=== PATIENT | female | born 1970 | race Caucasian/White ===

== ENCOUNTER 2017-03-22 14:49 | Emergency (ER) | payer MEDICAID ==
[~2017-03-22] VITALS: Ht 160 cm; Wt 68.0 kg
[~2017-03-22 14:49] MED LIST: LEVA750T PO; METR-1 PO
[2017-03-22 15:03] VITALS: BP 121/77; PULSE 75; RESP 16; TEMP 98.1; O2SAT 97; O2SAT 98
[2017-03-22] MEDS ORDERED: CLINDAMYCIN 150 MG CAP PO ONE (15:15)
[2017-03-22] MEDS ORDERED: SODIUM CHLORIDE 0.9% FLUSH 10 ML FLUSH IVF PRN ×2 (15:15)
[2017-03-22] MEDS ORDERED: ASPI81TA81 PO (15:20)
--- NOTE | 2017-03-22 15:21 | PD ---
HPI Chief Complaint: Chest Pain Time Seen by Provider: 15:06 Travel History International Travel<30 days: No Contact w/Intl Traveler<30days: No Traveled to known affect area: No History of Present Illness HPI 46-year-old female with history of breast cancer in remission, CAD with previous CABG who presents the emergency department with complaint of dental pain, facial swelling and chest pain. Patient has dental caries along the left mandibular teeth. This morning she woke up with facial swelling and significant pain in the left side of the face/jaw. She has not had any difficulty swelling, no fevers or chills. Patient states that she got quite anxious due to the pain and then began to have occasional sharp twinges of pain in the chest. This is substernal and felt like "electric zingers" lasting 1-2 seconds each. No associated shortness of breath. Not made worse with inspiration, movement. Patient is chest pain-free at this moment and is complaining only of left-sided dental pain. PFSH Past Medical History Hx Anticoagulant Therapy: Yes (81MG ASA) Anxiety: Yes Depression: Yes Heart Rhythm Problems: No Cancer: Yes (BREAST) Cardiac Catheterization: Yes Cardiovascular Problems: Yes (triple bypass) High Cholesterol: Yes Chemotherapy: Yes (BREAST CA ) Chest Pain: Yes Congestive Heart Failure: Yes Cerebrovascular Accident: No Coronary Artery Disease: Yes Diabetes: Yes (TYPE 1 ) Diminished Hearing: No Endocrine: No Gastrointestinal Disorders: No Genitourinary: No Hypertension: No Immune Disorder: No Implanted Vascular Access Dvce: Yes (PORT) Musculoskeletal: No Neurologic: No Psychiatric: Yes Reproductive: No Respiratory: No Immunizations Current: Yes Myocardial Infarction: Yes (-2012) Thyroid Disease: No ?: Not : 3 Para: 3 Tubal Ligation: Yes Past Surgical History Abdominal Surgery: Yes (HYSTERECTOMY, APPY, C-SEC X2) Appendectomy: Yes Cardiac Surgery: Yes (CABG -2012) Section: Yes Coronary Artery Bypass Graft: Yes (X3) Ear Surgery: No Endocrine Surgery: No Eye Surgery: No Genitourinary Surgery: Yes (HYSTERECTOMY) Gynecologic Surgery: Yes (2 c sections) Hysterectomy: Yes (2009) Neurologic Surgery: No Oral Surgery: No Thoracic Surgery: No Other Surgery: Yes (BILAT MASTECTOMY) Social History Alcohol Use: No Tobacco Use: Yes (OCCASIONAL) Substance Use: No Allergies-Medications (Allergen,Severity, Reaction): Coded Allergies: Penicillin (Verified Allergy, Severe, Hives, 09/15/16) Morphine (Verified Allergy, Intermediate, HIVES AND NAUSEA, 09/15/16) Toradol (Verified Allergy, Intermediate, itch and nausea, 09/15/16) Reported Meds & Prescriptions Reported Meds & Active Scripts Active Reported Aspir-81 (Aspirin) 81 Mg Tabdr 1 Tab PO DAILY Review of Systems Except as stated in HPI: all other systems reviewed are Neg Physical Exam Narrative GENERAL: Anxious tearful female holding left side of the jaw SKIN: Focused skin assessment warm/dry. Bilateral mastectomy scars HEAD: Normocephalic. EYES: No scleral icterus. No injection or drainage. ENT: Left mandibular dental caries with associated tenderness to palpation along the gingival mucosa. No palpable abscess. There is associated swelling of the left side of the face. The floor the mouth itself is soft. NECK: Supple CARDIOVASCULAR: Regular rate and rhythm. No murmur appreciated. No tenderness to palpation of the chest wall. RESPIRATORY: Hyperventilating on exam. Clear to auscultation. Breath sounds equal bilaterally. GASTROINTESTINAL: Abdomen soft, non-tender, nondistended. MUSCULOSKELETAL: No obvious deformities. No edema. NEUROLOGICAL: Awake and alert. Normal speech. PSYCHIATRIC: Anxious tearful and hyperventilating Data Data Last Documented VS Vital Signs Date Time Temp Pulse Resp B/P Pulse Ox O2 Delivery O2 Flow Rate FiO2 03/22/17 15:35 65 16 122/70 97 Room Air 03/22/17 15:03 98.1 Orders Electrocardiogram (03/22/17 15:12) Basic Metabolic Panel (Bmp) (03/22/17 15:12) Complete Blood Count With Diff (03/22/17 15:12) Troponin I (03/22/17 15:12) Ecg Monitoring (03/22/17 15:12) Iv Access Insert/Monitor (03/22/17 15:12) Oximetry (03/22/17 15:12) Sodium Chloride 0.9% Flush (Ns Flush) (03/22/17 15:15) Heparin Central Flush (Heparin Central F (03/22/17 15:15) Sodium Chloride 0.9% Flush (Ns Flush) (03/22/17 15:15) Heparin Central Flush (Heparin Central F (03/22/17 15:15) Clindamycin (Cleocin) (03/22/17 15:15) Oxycodone-Acetamin 5-325 Mg (Percocet (03/22/17 15:30) Labs Laboratory Tests Test 03/22/17 15:18 White Blood Count 6.6 TH/MM3 Red Blood Count 4.38 MIL/MM3 Hemoglobin 11.2 GM/DL Hematocrit 34.3 % Mean Corpuscular Volume 78.4 FL Mean Corpuscular Hemoglobin 25.6 PG Mean Corpuscular Hemoglobin 32.7 % Concent Red Cell Distribution Width 15.3 % Platelet Count 231 TH/MM3 Mean Platelet Volume 7.9 FL Neutrophils (%) (Auto) 61.3 % Lymphocytes (%) (Auto) 26.3 % Monocytes (%) (Auto) 6.2 % Eosinophils (%) (Auto) 2.5 % Basophils (%) (Auto) 3.7 % Neutrophils # (Auto) 4.1 TH/MM3 Lymphocytes # (Auto) 1.7 TH/MM3 Monocytes # (Auto) 0.4 TH/MM3 Eosinophils # (Auto) 0.2 TH/MM3 Basophils # (Auto) 0.2 TH/MM3 CBC Comment DIFF FINAL Differential Comment Sodium Level 143 MEQ/L Potassium Level 3.4 MEQ/L Chloride Level 107 MEQ/L Carbon Dioxide Level 27.5 MEQ/L Anion Gap 9 MEQ/L Blood Urea Nitrogen 11 MG/DL Creatinine 1.00 MG/DL Estimat Glomerular Filtration 60 ML/MIN Rate Random Glucose 131 MG/DL Calcium Level 8.5 MG/DL Troponin I LESS THAN 0.02 NG/ML MDM Medical Decision Making Medical Screen Exam Complete: Yes Emergency Medical Condition: Yes Medical Record Reviewed: Yes Differential Diagnosis 46-year-old female with history of breast cancer in remission, CAD with previous CABG here with left-sided dental pain, facial swelling and occasional "electric zingers"of chest pain. Financial includes dental caries, dental abscess, facial cellulitis. No evidence of Hima angina on exam. My suspicion is that her chest pain is related to anxiety, hyperventilating on exam and very anxious. Less likely ACS, PE or dissection. Narrative Course Patient placed on monitor, port accessed and blood obtained. A twelve-lead EKG shows sinus rhythm without notable ST abnormalities, normal intervals. Patient was given oral clindamycin. CBC, BMP, troponin and unremarkable. Patient will be discharged home with antibiotics for dental caries and concurrent abscess Diagnosis Primary Impression: Dental caries Additional Impressions: Dental abscess Atypical chest pain Referrals: Dentist call for appointment Additional Instructions: Call dentist for follow-up appointment. Antibiotics as prescribed. Med/Other Pt SpecificInfo: Prescription(s) given Scripts Clindamycin 300 Mg [id number] Mg PO TID 7 Days Ref 0 Prov:Sapna Lowe MD 03/22/17 Disposition: 01 DISCHARGE HOME Condition: Stable Sapna Lowe MD Mar 22, 2017 15:21
[2017-03-22] MEDS ORDERED: oxyCODONE/ACETAMINOPHEN 5 MG/325 MG TAB PO ONE (15:30)
[2017-03-22 15:31] LABS: AUTOMATED NEUTROPHIL # 4.1 TH/MM3 (1.8-7.7); BASOPHIL # 0.2 TH/MM3 (0-0.2); BASOPHIL % 3.7 % (0.0-2.0); EOSINOPHIL # 0.2 TH/MM3 (0-0.4); EOSINOPHIL % 2.5 % (0.0-4.0); HEMATOCRIT 34.3 % (35.0-46.0); HEMO FLAGS DIFF FINAL; LYMPH % 26.3 % (9.0-44.0); LYMPHOCYTE # 1.7 TH/MM3 (1.0-4.8); MEAN CELL VOLUME 78.4 FL (80.0-100.0); MEAN CORPUSCULAR HEMOGLOBIN 25.6 PG (27.0-34.0); MEAN CORPUSCULAR HGB CONC 32.7 % (32.0-36.0); MONO % 6.2 % (0.0-8.0); NEUT % 61.3 % (16.0-70.0); PLATELET COUNT 231 TH/MM3 (150-450); RED BLOOD COUNT 4.38 MIL/MM3 (4.00-5.30); RED CELL DISTRIBUTION WIDTH 15.3 % (11.6-17.2); WHITE BLOOD COUNT 6.6 TH/MM3 (4.0-11.0)
[2017-03-22 15:35] VITALS: BP 122/70; PULSE 65; RESP 16; O2SAT 97
[2017-03-22 15:43] LABS: CHLORIDE 107 MEQ/L (98-107); POTASSIUM 3.4 MEQ/L (3.5-5.1); SODIUM (NA) 143 MEQ/L (136-145)
[2017-03-22 15:46] LABS: BICARBONATE 27.5 MEQ/L (21.0-32.0)
[2017-03-22 15:47] LABS: ANION GAP 9 MEQ/L (5-15); BLOOD UREA NITROGEN 11 MG/DL (7-18)
[2017-03-22 15:50] LABS: GLOMERULAR FILTRATION RATE 60 ML/MIN (>89)
[2017-03-22 15:55] VITALS: BP 141/86
[2017-03-22] MEDS ORDERED: CLIN1CAP6 PO (16:02)
[2017-03-22 16:11] VITALS: RESP 16
--- NOTE | 2017-03-23 12:02 | EKG ---
Date Performed: 03/22/2017 Time Performed: 14:57:59 PTAGE: 46 years EKG: Sinus rhythm POSSIBLE RIGHT VENTRICULAR CONDUCTION DELAY Since previous tracing, no significant change noted [facility]3] ECG PREVIOUS TRACING : 09/16/2016 10.56.59 DOCTOR: Win Malik Interpretating Date/Time 03/23/2017 12:00:41
== END 2017-03-22 16:06 | disposition home or self-care (01) ==
LOC: PHED 14:49
DX: Z95.1 Presence of aortocoronary bypass graft (principal); I25.10 Atherosclerotic heart disease of native coronary artery without angina pectoris; Z85.3 Personal history of malignant neoplasm of breast; K02.9 Dental caries, unspecified; K04.7 Periapical abscess without sinus; R07.89 Other chest pain
CPT/HCPCS: 80048; 84484; 85025; 93005; 99284; J1642

== ENCOUNTER 2017-05-07 07:26 | Emergency (ER) | payer MEDICAID ==
[~2017-05-07] VITALS: Ht 160 cm; Wt 70.0 kg
[~2017-05-07 07:26] MED LIST changes: +ASPI81TA81 PO; +CLIN1CAP6 PO; -LEVA750T PO; -METR-1 PO
[2017-05-07 07:33] VITALS: BP 170/82; PULSE 78; RESP 18; TEMP 98.4; O2SAT 100
[2017-05-07 07:57] VITALS: BP 170/82; PULSE 78; RESP 18; TEMP 98.4; O2SAT 100
[2017-05-07] MEDS ORDERED: IBUPROFEN 400 MG TAB PO ONE (08:00)
[2017-05-07] MEDS ORDERED: ACETAMINOPHEN/HYDROcodone 325 MG/5 MG TAB PO ONE (08:00)
--- NOTE | 2017-05-07 08:03 | PD ---
HPI Chief Complaint: Fall Time Seen by Provider: 07:49 Travel History International Travel<30 days: No Contact w/Intl Traveler<30days: No Traveled to known affect area: No History of Present Illness HPI The patient is a 46-year-old female who presents to the emergency department for left foot pain and left lower back pain after fall this morning. The patient states she accidentally fell [place] the stairs [place] front [place] this [place]. The patient complains of left lower back pain with muscle spasm, states pain is worse with movement and slightly alleviated at rest. She also complains of left foot pain just proximal to the left great toe after she twisted her foot during the fall. The patient denies any head trauma , neck trauma, acute chest pain, or shortness of breath. She denies any associated nausea, vomiting, or abdominal pain. She does have a history of breast cancer and underwent chemotherapy and bilateral mastectomy, is followed by Dr. Velásquez. She denies any paresthesias, numbness, or tingling of the upper or lower extremities. PFSH Past Medical History Hx Anticoagulant Therapy: No Arthritis: Yes (knees) Anxiety: Yes Depression: Yes Heart Rhythm Problems: No Cancer: Yes (bilat BREAST) Cardiac Catheterization: Yes Cardiovascular Problems: Yes High Cholesterol: Yes Chemotherapy: Yes (BREAST CA ) Chest Pain: Yes Congestive Heart Failure: Yes Cerebrovascular Accident: No Coronary Artery Disease: Yes Diabetes: Yes (TYPE 1 ) Diminished Hearing: No Endocrine: No Gastrointestinal Disorders: No Genitourinary: No Hypertension: No Immune Disorder: No Implanted Vascular Access Dvce: Yes ( right PORT) Musculoskeletal: No Neurologic: No Psychiatric: Yes Reproductive: No Respiratory: No Immunizations Current: Yes Myocardial Infarction: Yes () Thyroid Disease: No : 3 Para: 3 Tubal Ligation: Yes Past Surgical History Abdominal Surgery: Yes (HYSTERECTOMY, APPY, C-SEC X2) Appendectomy: Yes Cardiac Surgery: Yes (CABG ) Section: Yes (x2) Coronary Artery Bypass Graft: Yes (X3) Ear Surgery: No Endocrine Surgery: No Eye Surgery: No Genitourinary Surgery: Yes (HYSTERECTOMY) Gynecologic Surgery: Yes (2 c sections) Hysterectomy: Yes Neurologic Surgery: No Oral Surgery: No Thoracic Surgery: No Other Surgery: Yes (BILAT MASTECTOMY 2015) Social History Alcohol Use: No Tobacco Use: Yes (4 cigs a day) Substance Use: No (hx of cocaine) Allergies-Medications (Allergen,Severity, Reaction): Coded Allergies: Penicillin (Verified Allergy, Severe, Hives, 05/07/17) Morphine (Verified Allergy, Intermediate, HIVES AND NAUSEA, 05/07/17) Toradol (Verified Allergy, Intermediate, itch and nausea, 05/07/17) Reported Meds & Prescriptions Reported Meds & Active Scripts Active No Active Prescriptions or Reported Medications Review of Systems Except as stated in HPI: all other systems reviewed are Neg HENT: No: Headaches, Neck Pain Cardiovascular: No: Chest Pain or Discomfort Respiratory: No: Shortness of Breath Gastrointestinal: No: Nausea, Vomiting, Abdominal Pain Musculoskeletal: Positive: Pain Neurologic: No: Paresthesia, Sensory Disturbance Hematologic/Lymphatic: Positive: Other (history of breast cancer with previous mastectomy and chemotherapy) Physical Exam Narrative GENERAL: Awake, alert, pleasant 46-year-old female who appears her stated age and is in no acute respiratory distress. SKIN: Focused skin assessment warm/dry. HEAD: Atraumatic. Normocephalic. EYES: Pupils equal and round. No scleral icterus. No injection or drainage. ENT: No nasal bleeding or discharge. Mucous membranes pink and moist. NECK: Trachea midline. No JVD. CARDIOVASCULAR: Regular rate and rhythm. No murmur appreciated. Well-healed scar sternal scar. Port in place right chest wall. RESPIRATORY: No accessory muscle use. Clear to auscultation. Breath sounds equal bilaterally. GASTROINTESTINAL: Abdomen soft, non-tender, nondistended. MUSCULOSKELETAL: Mild tenderness over the left first MCP. No tenderness of the medial lateral malleus. No tenderness over the proximal fibula or knee. Patella is midline. Minimal tenderness of the lateral left hip, however, patient is able flex the left hip and knee to 90. Back: No tenderness of the mid thoracic or lumbar vertebrae. Tenderness of the left paravertebral muscle with spasm. NEUROLOGICAL: Awake and alert. No obvious cranial nerve deficits. Motor grossly within normal limits. Normal speech. Alert and oriented 4. PSYCHIATRIC: Appropriate mood and affect; insight and judgment normal. Data Data Last Documented VS Vital Signs Date Time Temp Pulse Resp B/P Pulse Ox O2 Delivery O2 Flow Rate FiO2 05/07/17 07:58 98 Room Air 05/07/17 07:57 98.4 78 18 170/82 Orders Ibuprofen (Motrin) (05/07/17 08:00) Acetamin-Hydrocod 325-5 Mg ([place] 5-325 (05/07/17 08:00) Foot, Limited (2vws) (05/07/17 ) Pelvis, Ap Only (Routine) (05/07/17 ) [facility] Medical Decision Making Medical Screen Exam Complete: Yes Emergency Medical Condition: Yes Medical Record Reviewed: Yes Interpretation(s) X-ray of the pelvis is negative for fracture or dislocation. Follow-up in 7-10 days is suggested if symptoms persist. X-ray of the foot reveals tiny avulsion MTP joint proximal phalanx. Differential Diagnosis Differential diagnosis includes mechanical fall, fracture, contusion, hematoma, dislocation. Narrative Course X-ray of the pelvis and left foot were obtained. The patient was administered ibuprofen 400 mg and hydrocodone 5 mg orally for pain. X-ray of the pelvis is unremarkable. X-ray of the right foot reveals a tiny avulsion at the MCP proximal phalanx. Therefore, patient will be placed in a short posterior leg splint and is advised to follow-up with podiatry. Diagnosis Primary Impression: Phalanx fracture, foot Qualified Code: S92.415A - Closed nondisplaced fracture of proximal phalanx of left great toe, initial encounter Patient Instructions: General Instructions Additional Instructions: Medications as directed. Splint and crutches as directed. Follow-up with podiatry. Elevate and ice. Please provide the patient a copy of her x-ray results at discharge. Med/Other Pt SpecificInfo: Prescription(s) given Scripts Cyclobenzaprine (Flexeril)10 Mg Tab10 Mg PO TID #30 TAB Ref 0 Prov:Michael Sandy MD 05/07/17 Hydrocodone-Acetaminophen ([place])5-325 mg Tab1 Tab PO Q6H PRN (PAIN) #15 TAB Ref 0 Prov:Michael Sandy MD 05/07/17 Ibuprofen 400 Mg [id number] Mg PO Q6H PRN (PAIN SCALE 1 TO 10) #20 TAB Ref 0 Prov:Michael Sandy MD 05/07/17 Disposition: 01 DISCHARGE HOME Condition: Stable Michael Sandy MD May 07, 2017 08:03
--- NOTE | 2017-05-07 09:01 | RADRPT ---
EXAM DATE/TIME: 05/07/2017 08:04 [facility] COMPARISON: No previous studies available for comparison. INDICATIONS : Left side pelvic pain from fall this morning. MEDICAL HISTORY : Carcinoma, breast. SURGICAL HISTORY : Appendectomy. Mastectomy, bilateral. CABG. ENCOUNTER: Initial ACUITY: 1 day PAIN SCORE: 9/10 LOCATION: Left pelvis FINDINGS: A single frontal view of the pelvis demonstrates no evidence of fracture. The bony pelvic ring is in tact. Bony mineralization is normal. The soft tissues are intact. CONCLUSION: Negative for fracture or dislocation. Follow up in 7-10 days is suggested if symptoms persist. Greg Chambers MD FACR on May 07, 2017 at 8:59 Board Certified Radiologist. This report was verified electronically.
--- NOTE | 2017-05-07 09:02 | RADRPT ---
EXAM DATE/TIME: 05/07/2017 08:29 [facility] COMPARISON: No previous studies available for comparison. INDICATIONS : Left foot pain after fall this morning. MEDICAL HISTORY : None. SURGICAL HISTORY : None. ENCOUNTER: Initial ACUITY: 1 day PAIN SCORE: 10/10 LOCATION: Left medial Foot FINDINGS: Swelling and degenerative changes are seen about the first MTP joint. \Tiny avulsion fracture is pre sent medial side proximal phalanx. CONCLUSION: Tiny avulsion MTP joint proximal phalanx. Greg Chambers MD FACR on May 07, 2017 at 8:59 Board Certified Radiologist. This report was verified electronically.
[2017-05-07] MEDS ORDERED: NORC5TAB PO (09:08)
[2017-05-07] MEDS ORDERED: CYCL1TAB29 PO (09:08)
[2017-05-07] MEDS ORDERED: IBUP400T20 PO (09:08)
== END 2017-05-07 09:56 | disposition home or self-care (01) ==
LOC: PHED 07:26
DX: S92.415A Nondisplaced fracture of proximal phalanx of left great toe, initial encounter for closed fracture (principal); M54.5 Low back pain; M62.830 Muscle spasm of back; E10.9 Type 1 diabetes mellitus without complications; E78.00 Pure hypercholesterolemia, unspecified; I25.2 Old myocardial infarction; W10.9XXA Fall (on) (from) unspecified stairs and steps, initial encounter; Y92.89 Other specified places as the place of occurrence of the external cause; Z72.0 Tobacco use; Z87.39 Personal history of other diseases of the musculoskeletal system and connective tissue; Z86.59 Personal history of other mental and behavioral disorders; Z85.3 Personal history of malignant neoplasm of breast; Z86.79 Personal history of other diseases of the circulatory system
CPT/HCPCS: 29515; 72170; 73620; 99284; E0113

== ENCOUNTER 2017-05-18 13:51 | Emergency (ER) | payer MEDICAID ==
[~2017-05-18 13:51] MED LIST changes: -ASPI81TA81 PO; -CLIN1CAP6 PO; +CYCL1TAB29 PO; +IBUP400T20 PO; +NORC5TAB PO
== END 2017-05-18 14:30 | disposition left against medical advice (07) ==
LOC: PHED 13:51
DX: R68.89 Other general symptoms and signs (principal)
CPT/HCPCS: 99281

== ENCOUNTER 2017-11-24 21:27 | Emergency (ER) | payer SELFPAY ==
[~2017-11-24] VITALS: Ht 160 cm; Wt 72.0 kg
[~2017-11-24 21:27] MED LIST changes: +CYCL10TA PO; -CYCL1TAB29 PO; +IBUP1TAB5 PO; -IBUP400T20 PO
[2017-11-24 22:04] VITALS: BP 116/62; PULSE 78; RESP 16; TEMP 99.7; O2SAT 99
--- NOTE | 2017-11-24 23:22 | PD ---
HPI Chief Complaint: Abdominal Pain Time Seen by Provider: 23:04 Travel History International Travel<30 days: No Contact w/Intl Traveler<30days: No Traveled to known affect area: No History of Present Illness HPI The patient is a 47 year old female who presents to the [facility] emergency department with a history of bodyaches most prominent in bilateral shoulders the left greater than the right 1 week ago. She has had generalized swelling. She reports having a history of hepatitis, however she is unsure of the type. She denies having any chest pain, chest pressure, or shortness of breath. She denies having any known recent fevers. She reports that she has had cough and congestion over the last few days. She reports that she is also had abdominal pain, however no vomiting or diarrhea. She reports that she does have a history of constipation, however she did move her bowels earlier today. The patient reports that the abdominal pain is sharp in character and constant since the onset. She denies having any alleviating or aggravating factors. The patient reports having a history of anxiety, depression, breast cancer, coronary artery disease, myocardial infarction in 2013, hyperlipidemia, and congestive heart failure. Patient reports that she has not been on her medications for the last 6 months. She reports that her primary care physician is Dr. Rosado. She last saw him 6 months ago. She reports that she was previously using cocaine, however she last used crack cocaine 6 months ago. On review of systems otherwise, the patient denies having any known recent fevers, neck pain, urinary symptoms, or neurologic symptoms. LMP: 2010, partial hysterotomy. [facility] Past Medical History Narrative Medical The patient's past medical history is significant for hepatitis, breast CA- chemo tx and bilateral mastectomy, [place] 5 years ago, history of crack cocaine use last 6 months, history of congestive heart failure, history of anxiety and depression, history of myocardial infarction in 2013, hypertension, hyperlipidemia. Hx Anticoagulant Therapy: No Arthritis: Yes (knees) Anxiety: Yes Depression: Yes Heart Rhythm Problems: No Cancer: Yes (bilat BREAST) Cardiac Catheterization: Yes Cardiovascular Problems: Yes High Cholesterol: Yes Chemotherapy: Yes (BREAST CA ) Chest Pain: Yes Congestive Heart Failure: Yes Cerebrovascular Accident: No Coronary Artery Disease: Yes Diabetes: Yes (TYPE 1 ) Patient Takes Glucophage: No Diminished Hearing: No Endocrine: No Gastrointestinal Disorders: No Genitourinary: No Heparin Induced Thrombocytopen: No Hypertension: No Immune Disorder: No Implanted Vascular Access Dvce: Yes ( right PORT) Musculoskeletal: No Neurologic: No Psychiatric: Yes Reproductive: No Respiratory: No Immunizations Current: Yes Myocardial Infarction: Yes () Thyroid Disease: No Tetanus Vaccination: < 5 Years Influenza Vaccination: Yes ?: Unknown : 3 Para: 3 Tubal Ligation: Yes Past Surgical History Narrative Surgical The patient's past surgical history is significant for CABG of 3 vessels, mastectomy, [id number] placement, bilateral tubal ligation, appendectomy, hysterectomy, 2, laparoscopy. Abdominal Surgery: Yes (HYSTERECTOMY, APPY, C-SEC X2) Appendectomy: Yes Cardiac Surgery: Yes (CABG ) Section: Yes (x2) Coronary Artery Bypass Graft: Yes (X3) Ear Surgery: No Endocrine Surgery: No Eye Surgery: No Genitourinary Surgery: Yes (HYSTERECTOMY) Gynecologic Surgery: Yes (2 c sections) Hysterectomy: Yes Neurologic Surgery: No Oral Surgery: No Thoracic Surgery: No Other Surgery: Yes (BILAT MASTECTOMY 2016) Family History Family Myocardial Infarction: Yes Social History Alcohol Use: No Tobacco Use: Yes (4 cigs a day) Substance Use: No (hx of cocaine use last 6 months ago.) Allergies-Medications (Allergen,Severity, Reaction): Coded Allergies: penicillin G (Unverified Allergy, Severe, Hives, 11/24/17) ketorolac (Unverified Allergy, Intermediate, itch and nausea, 11/24/17) morphine (Unverified Allergy, Intermediate, HIVES AND NAUSEA, 11/24/17) Reported Meds & Prescriptions Reported Meds & Active Scripts Active Flexeril (Cyclobenzaprine HCl) 10 Mg Tab 10 Mg PO TID [place] (Hydrocodone-Acetaminophen) 5-325 mg Tab 1 Tab PO Q6H PRN Ibuprofen 400 Mg Tab 400 Mg PO Q6H PRN Review of Systems Except as stated in HPI: all other systems reviewed are Neg General / Constitutional: No: Fever Eyes: No: Visual changes HENT: No: Headaches Cardiovascular: No: Chest Pain or Discomfort Respiratory: No: Shortness of Breath Gastrointestinal: Positive: Abdominal Pain, Constipation, Changes in Bowel Habits (last moved today with a suppository), No: Nausea, Vomiting, Diarrhea Genitourinary: No: Dysuria Musculoskeletal: Positive: Myalgias, Arthralgias, Limited ROM, Edema, Pain Skin: No Rash Neurologic: No: Weakness, Focal Abnormalities, Change in Mentation, Slurred Speech, Sensory Disturbance Psychiatric: No: Depression Endocrine: No: Polydipsia Hematologic/Lymphatic: No: Easy Bruising Physical Exam Narrative General: The patient is a well-developed well-nourished female in no acute distress. Head and Neck exam: Head is normocephalic atraumatic. Eyes: EOMI, pupils are equal round and reactive to light. Nose: Midline septum with pink mucous membranes Mouth: Dentition unremarkable. Moist mucus membranes. Posterior oropharynx is not erythematous. No tonsillar hypertrophy. Uvula midline. Airway patent. Neck: No palpable lymphadenopathy. No nuchal rigidity. No thyromegaly. Cardiovascular: Regular rate and rhythm without murmurs, gallops, or rubs. No pulse deficit to the extremities on simultaneous auscultation and palpation of her radial artery. Lungs: Clear to auscultation bilaterally. No wheezes, rhonchi, or rales. Abdomen: Soft, with reported tenderness on palpation of bilateral lower quadrants of the abdomen and pubic area, no other tenderness on palpation of the other quadrants of the abdomen. No guarding, rebound, or rigidity. No focal tenderness on palpation over McBurney's point. Negative Friedman sign. Extremities: No clubbing, cyanosis, or edema. 2+ pulses in all 4 extremities. No calf tenderness on palpation. The patient reports having bilateral shoulder pain. There is no visible erythema, edema, or loss of range of motion although patient reports having increased pain with flexion of the shoulders above 90. Back: No spinous process tenderness to palpation. No costovertebral angle tenderness to palpation. Neurologic Exam: Grossly nonfocal Skin Exam: No rash noted. Intact skin that is warm and dry. Data Data Last Documented VS Vital Signs Date Time Temp Pulse Resp B/P (MAP) Pulse Ox O2 Delivery O2 Flow Rate FiO2 11/24/17 22:04 99.7 78 16 116/62 (80) 99 Room Air Orders Orders Electrocardiogram (11/24/17 23:19) Complete Blood Count With Diff (11/24/17 23:19) Comprehensive Metabolic Panel (11/24/17 23:19) Creatine Kinase (Cpk) (11/24/17 23:19) Ckmb (Isoenzyme) Profile (11/24/17 23:19) Troponin I (11/24/17 23:19) Prothrombin Time / Inr (Pt) (11/24/17 23:19) Act Partial Throm Time (Ptt) (11/24/17 23:19) C-Reactive Protein (Crp) (11/24/17 23:19) Lipase (11/24/17 23:19) Urinalysis - C+S If Indicated (11/24/17 23:19) Magnesium (Mg) (11/24/17 23:19) Chest, Single Ap (11/24/17 23:19) Iv Access Insert/Monitor (11/24/17 23:19) Ecg Monitoring (11/24/17:) Oximetry (11/24/17:19) Ed Urine Pregnancytest Poc (11/24/17 23:19) Drug Screen, Random Urine (11/24/17 23:19) Alcohol (Ethanol) (11/24/17 23:19) Westergren Sedimentation Rate (11/24/17 23:50) Ondansetron Inj (Zofran Inj) (11/25/17 00:00) Sodium Chlorid 0.9% 500 Ml Inj (Ns 500 M (11/25/17 00:00) CKMB (11/24/17 23:30) CKMB% (11/24/17 23:30) Labs Laboratory Tests Test 11/24/17 23:30 11/24/17 23:50 White Blood Count 9.8 TH/MM3 Red Blood Count 3.75 MIL/MM3 Hemoglobin 10.7 GM/DL Hematocrit 31.8 % Mean Corpuscular Volume 84.8 FL Mean Corpuscular Hemoglobin 28.6 PG Mean Corpuscular Hemoglobin Concent 33.8 % Red Cell Distribution Width 14.4 % Platelet Count 300 TH/MM3 Mean Platelet Volume 7.3 FL Neutrophils (%) (Auto) 72.6 % Lymphocytes (%) (Auto) 18.7 % Monocytes (%) (Auto) 6.1 % Eosinophils (%) (Auto) 2.1 % Basophils (%) (Auto) 0.5 % Neutrophils # (Auto) 7.1 TH/MM3 Lymphocytes # (Auto) 1.8 TH/MM3 Monocytes # (Auto) 0.6 TH/MM3 Eosinophils # (Auto) 0.2 TH/MM3 Basophils # (Auto) 0.0 TH/MM3 CBC Comment DIFF FINAL Differential Comment Prothrombin Time 10.5 SEC Prothromb Time International Ratio 1.0 RATIO Activated Partial Thromboplast Time 30.3 SEC Blood Urea Nitrogen 14 MG/DL Creatinine 0.77 MG/DL Random Glucose 104 MG/DL Total Protein 7.6 GM/DL Albumin 3.2 GM/DL Calcium Level 8.6 MG/DL Magnesium Level 1.8 MG/DL Alkaline Phosphatase 92 U/L Aspartate Amino Transf (AST/SGOT) 21 U/L Alanine Aminotransferase (ALT/SGPT) 20 U/L Total Bilirubin 0.1 MG/DL Sodium Level 138 MEQ/L Potassium Level 3.8 MEQ/L Chloride Level 105 MEQ/L Carbon Dioxide Level 29.5 MEQ/L Anion Gap 4 MEQ/L Estimat Glomerular Filtration Rate 80 ML/MIN Total Creatine Kinase 166 U/L Creatine Kinase MB 2.3 NG/ML Troponin I LESS THAN 0.02 NG/ML C-Reactive Protein 5.10 MG/DL Lipase 63 U/L Ethyl Alcohol Level LESS THAN 3 MG/DL Erythrocyte Sedimentation Rate 54 mm/hr MDM Medical Decision Making Medical Screen Exam Complete: Yes Emergency Medical Condition: Yes Medical Record Reviewed: Yes Interpretation(s) Last Impressions Chest X-Ray 11/24/17 [id number] Signed Impressions: Service Date/Time: Saturday, November 25, 2017 00:19 - CONCLUSION: 1. No acute abnormality or significant interval change. Nicolas Nunez MD Differential Diagnosis Ascites, versus hypoalbuminemia, versus septic arthritis Narrative Course During the course of the patient's emergency department visit, the patient's history, examination, and differential diagnosis were reviewed with the patient. The patient was placed on a cardiac exercise physiologist with oximetry and frequent blood pressure monitoring. The patient had IV access obtained and blood work sent for analysis. The patient had a EKG done on arrival that shows a sinus rhythm heart rate of 79, QRS duration is 91 ms, QTC [address] segment elevation. T waves are inverted in lead V1. Chest x-ray was ordered, CT scan of the abdomen and pelvis was ordered. The patient was initially provided normal saline 500 mL bolus 1, Zofran 4 mg IV for nausea. The patient's laboratory studies and imaging studies were not able to be reviewed prior to the patient leaving AGAINST MEDICAL ADVICE Unfortunately while I was in the middle of evaluation of a trauma patient, the patient decided that she was going to leave AGAINST MEDICAL ADVICE. This was at approximately 12:40 AM. The patient had left the emergency department prior to my discussing further with her the plan of care. AMA: The risks of leaving against medical advice without further evaluation treatment were discussed with the patient by the patient's nurse. These risks include cardiac dysfunction, cardiovascular collapse from sepsis, versus respiratory failure, versus . The patient indicated understanding of these risks and appeared to have the capacity to make this decision. Diagnosis Primary Impression: Myalgia Additional Impressions: Abdominal pain Qualified Codes: R10.30 - Lower abdominal pain, unspecified Left against medical advice Referrals: Primary Care Physician 1 day Disposition: 07 AGAINST MEDICAL ADVICE Condition: Joan Soriano MD Nov 24, 2017 23:22
[2017-11-24 23:52] LABS: AUTOMATED NEUTROPHIL # 7.1 TH/MM3 (1.8-7.7); BASOPHIL % 0.5 % (0.0-2.0); EOSINOPHIL # 0.2 TH/MM3 (0-0.4); EOSINOPHIL % 2.1 % (0.0-4.0); HEMATOCRIT 31.8 % (35.0-46.0); HEMOGLOBIN 10.7 GM/DL (11.6-15.3); LYMPH % 18.7 % (9.0-44.0); LYMPHOCYTE # 1.8 TH/MM3 (1.0-4.8); MEAN CELL VOLUME 84.8 FL (80.0-100.0); MEAN CORPUSCULAR HEMOGLOBIN 28.6 PG (27.0-34.0); MEAN CORPUSCULAR HGB CONC 33.8 % (32.0-36.0); MEAN PLATELET VOLUME 7.3 FL (7.0-11.0); MONO % 6.1 % (0.0-8.0); MONOCYTE # 0.6 TH/MM3 (0-0.9); NEUT % 72.6 % (16.0-70.0); PLATELET COUNT 300 TH/MM3 (150-450); RED BLOOD COUNT 3.75 MIL/MM3 (4.00-5.30); RED CELL DISTRIBUTION WIDTH 14.4 % (11.6-17.2); WHITE BLOOD COUNT 9.8 TH/MM3 (4.0-11.0)
[2017-11-24 23:59] LABS: PROTHROMBIN TIME - PATIENT 10.5 SEC (9.8-11.6)
[2017-11-25] MEDS ORDERED: ONDANSETRON HCL 4 MG/2 ML VIAL IV ONE
[2017-11-25] MEDS ORDERED: SODIUM CHLORID 0.9% 500 ML INJ 500 ML IV ONE
[2017-11-25 00:18] LABS: ALBUMIN 3.2 GM/DL (3.4-5.0); BICARBONATE 29.5 MEQ/L (21.0-32.0); BLOOD UREA NITROGEN 14 MG/DL (7-18); CALCIUM 8.6 MG/DL (8.5-10.1); CHLORIDE 105 MEQ/L (98-107); CREATININE 0.77 MG/DL (0.50-1.00); GLOMERULAR FILTRATION RATE 80 ML/MIN (>89); GLUCOSE,RANDOM 104 MG/DL (74-106); MAGNESIUM 1.8 MG/DL (1.5-2.5); SODIUM (NA) 138 MEQ/L (136-145)
[2017-11-25 00:19] LABS: ALT (GPT) 20 U/L (10-53)
[2017-11-25 00:21] LABS: ALKALINE PHOSPHATASE 92 U/L (45-117); AST (GOT) 21 U/L (15-37); TOTAL BILIRUBIN ADULT 0.1 MG/DL (0.2-1.0); TOTAL PROTEIN 7.6 GM/DL (6.4-8.2); TROPONIN I LESS THAN 0.02 NG/ML (0.02-0.05)
--- NOTE | 2017-11-25 01:10 | RADRPT ---
EXAM DATE/TIME: 11/25/2017 00:19 [facility] COMPARISON: CHEST SINGLE AP, September 15, 2016, 21:55. INDICATIONS : Lower chest pain. MEDICAL HISTORY : Myocardial infarction. Congestive heart failure. Carcinoma, breast. SURGICAL HISTORY : CABG. Infusaport. ENCOUNTER: Initial ACUITY: 1 day PAIN SCORE: 4/10 LOCATION: Bilateral lower chest FINDINGS: Stable right subclavian [id number]. Median sternotomy wires. No new focal pleural or parenchymal o pacities. Cardiomediastinal contours are within normal limits. Bony thorax is intact. CONCLUSION: 1. No acute abnormality or significant interval change. Nicolas Nunez MD on November 25, 2017 at 1:08 Board Certified Radiologist. This report was verified electronically.
--- NOTE | 2017-11-25 22:16 | EKG ---
Date Performed: 11/24/2017 Time Performed: 23:05:59 PTAGE: 47 years EKG: Sinus rhythm POSSIBLE RIGHT VENTRICULAR CONDUCTION DELAY MODERATE ST DEPRESSION ABNORMAL ECG Since the prior trac ing, there has been no significant change DOCTOR: Dalton Villeda Interpretating Date/Time 11/25/2017 22:15:56
== END 2017-11-25 05:21 | disposition left against medical advice (07) ==
LOC: NEPE 21:27
DX: M79.1 Myalgia (principal); R10.30 Lower abdominal pain, unspecified; F17.210 Nicotine dependence, cigarettes, uncomplicated; I25.2 Old myocardial infarction; I25.10 Atherosclerotic heart disease of native coronary artery without angina pectoris; R94.31 Abnormal electrocardiogram [ECG] [EKG]; Z79.899 Other long term (current) drug therapy
CPT/HCPCS: 71045; 80053; 80307; 82550; 82552; 83690; 83735; 84484; 85025; 85610; 85652; 85730; 86140; 93005; 96374; 99285; J2405; J7040